=== PATIENT | female | born 1975 | race Asian ===

== ENCOUNTER 2022-01-07 12:20 | Outpatient (CLI) | payer OTHER | END 2022-01-07 12:21 | disposition home or self-care (01) | LOC: CSHRAD 12:20 | PROVIDERS: ATTEND Family Medicine | DX: M54.2 Cervicalgia (principal); M47.812 Spondylosis without myelopathy or radiculopathy, cervical region | CPT/HCPCS: 72040 ==

== ENCOUNTER 2023-03-02 09:12 | Outpatient (CLI) | payer OTHER | END 2023-03-02 09:13 | disposition home or self-care (01) | LOC: CSHRAD 09:12 | PROVIDERS: ATTEND Family Medicine | DX: M54.42 Lumbago with sciatica, left side (principal) | CPT/HCPCS: 72100 ==

== ENCOUNTER 2024-04-16 11:04 | Outpatient (CLI) | payer OTHER | END 2024-04-16 11:05 | disposition home or self-care (01) | LOC: CSHMAMMO 11:04 | PROVIDERS: ATTEND Family Medicine | DX: Z12.31 Encounter for screening mammogram for malignant neoplasm of breast (principal) | CPT/HCPCS: 77063; 77067 ==